=== PATIENT | female | born 1960 | race Asian ===

== ENCOUNTER 2019-12-11 21:01 | Emergency (ER) | payer OTHER ==
[~2019-12-11] VITALS: Ht 162.6 cm; Wt 56.8 kg
[2019-12-11] MEDS ORDERED: SPIR25 PO (21:13)
[2019-12-11] MEDS ORDERED: LABE100T5 PO (21:13)
[2019-12-11] MEDS ORDERED: NIFE-79 PO (21:13)
[2019-12-11] MEDS ORDERED: BENA5TAB26 PO (21:13)
[2019-12-11] MEDS ORDERED: IBUPROFEN 600 MG TABLET PO ONE (22:45)
[2019-12-11 23:10] VITALS: BP 124/71
== END 2019-12-11 23:10 | disposition home or self-care (01) ==
LOC: EMS 21:01
DX: S93.401A Sprain of unspecified ligament of right ankle, initial encounter (principal); M25.471 Effusion, right ankle; I10 Essential (primary) hypertension; Z88.1 Allergy status to other antibiotic agents; W10.9XXA Fall (on) (from) unspecified stairs and steps, initial encounter; Y93.01 Activity, walking, marching and hiking; Y92.89 Other specified places as the place of occurrence of the external cause; Y99.8 Other external cause status
CPT/HCPCS: 73610-TC; 73630-TC; Z7502; Z7610